=== PATIENT | female | born 1950 | race Caucasian/White ===

== ENCOUNTER 2020-05-27 11:48 | Outpatient (CLI) | payer MEDICARE, SELFPAY ==
--- NOTE | ~2020-05-27 | MM_ITS ---
EXAMINATION: MM screening [facility] BI w sharan HISTORY: Screening TECHNIQUE: Craniocaudal and mediolateral oblique 3-D tomosynthesis images were obtained and synthetic 2-D images were generated. CAD analysis was submitted and interpreted. COMPARISON: Comparison to multiple prior studies sequentially, with oldest reviewed study dated 02/2013. BREAST PARENCHYMAL COMPOSITION: There are scattered areas of fibroglandular density. FINDINGS: There is no evidence of suspicious mass, calcification, or architectural distortion to sugg est malignancy in either breast. There has been no suspicious interval change. IMPRESSION: 1. No mammographic evidence of malignancy. 2. Recommend routine screening mammography in one year. BI-RADS Category 1: Negative Reviewed, dictated and finalized at location A.
== END 2020-05-27 11:49 | disposition home or self-care (01) ==
PROVIDERS: PCP Family Medicine; Visit Provider Physician Assistant
DX: Z12.31 Encounter for screening mammogram for malignant neoplasm of breast (principal)
CPT/HCPCS: 77063; 77067

== ENCOUNTER 2021-07-26 09:31 | Outpatient (CLI) | payer MEDICARE, SELFPAY ==
--- NOTE | ~2021-07-26 | MM_ITS ---
EXAMINATION: MM screening [facility] BI w sharan HISTORY: Screening TECHNIQUE: Craniocaudal and mediolateral oblique 3-D tomosynthesis images were obtained and synthetic 2-D images were generated. CAD analysis was submitted and interpreted. COMPARISON: Comparison to multiple prior studies sequentially, with oldest reviewed study dated 02/2013. BREAST PARENCHYMAL COMPOSITION: There are scattered areas of fibroglandular density. FINDINGS: There is no evidence of suspicious mass, calcification, or architectural distortion to sugg est malignancy in either breast. There has been no suspicious interval change. IMPRESSION: 1. No mammographic evidence of malignancy. 2. Recommend routine screening mammography in one year. BI-RADS Category 1: Negative Reviewed, dictated and finalized at location A. 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
--- NOTE | ~2021-07-26 | DEXA_ITS ---
Bone Density Report Name: Renée Knapp Age: 70 Sex: Female Ethnicity: White Date of : 1950 Indication: osteopenia; height loss; hysterectomy; postmenopausal Referring Provider: Norris Moser Study: Bone densitometry was performed. Exam Date: July 26, 2021 Accession number: [id number] Bone Density: Region BMD T-score Z-score Classification AP Spine (L1-L4) 0.899 -1.3 0.9 Osteopenia Femoral Neck (Left) 0.603 -2.2 -0.3 Osteopenia Total Hip (Left) 0.802 -1.1 0.4 Osteopenia Total Hip Bilateral Avg 0.788 -1.3 0.3 Osteopenia Femoral Neck (Right) 0.649 -1.8 0.1 Osteopenia Total Hip (Right) 0.772 -1.4 0.2 Osteopenia World Health Organization criteria for BMD impression classify patients as: Normal (T-score at or above -1.0), Osteopenia (T-score between -1.0 and -2.5), or Osteoporosis (T-score at or below -2.5). 10-year Fracture Risk(1): Major Osteoporotic Fracture 12% Hip Fracture 2.5% Reported Risk Factors: [place] (), Neck BMD=0.603, BMI=35.8 (1) FRAX(R) Version 3.08. Fracture probability calculated for an untreated patient. Fracture probability may be lower if the patient has received treatment. Previous Exams: Region Exam Age BMD T-score BMD Change BMD Change Date g/cm2 vs Baseline vs Previous AP Spine(L1-L4) 07/26/2021 70 0.899 -1.3 -0.038(-4.0%)# -0.009(-1.0%) 12/19/2018 68 0.908 -1.3 -0.029(-3.1%)# 0.020(2.2%) 12/15/2016 66 0.888 -1.4 -0.048(-5.2%)# 0.006(0.6%) 10/24/2014 63 0.882 -1.5 -0.054(-5.8%)# -0.043(-4.6%)# 09/27/2012 61 0.925 -1.1 -0.011(-1.2%)# -0.011(-1.2%)# 01/24/2008 57 0.936 -1.0 Total Hip(Left) 07/26/2021 70 0.802 -1.1 -0.036(-4.3%)# 0.024(3.1%) 12/19/2018 68 0.778 -1.3 -0.060(-7.2%)# 0.006(0.8%) 12/15/2016 66 0.772 -1.4 -0.066(-7.9%)# -0.008(-1.0%) 10/24/2014 63 0.779 -1.3 -0.058(-6.9%)# -0.104(-11.8%) 09/27/2012 61 0.884 -0.5 0.046(5.5%)# 0.046(5.5%)# 01/24/2008 57 0.838 -0.9 Total Hip(Right) 07/26/2021 70 0.772 -1.4 -0.105(-12.0%) -0.030(-3.7%)* 12/19/2018 68 0.802 -1.2 -0.075(-8.5%)# 0.020(2.6%) 12/15/2016 66 0.781 -1.3 -0.095(-10.9%) -0.032(-3.9%)* 10/24/2014 63 0.813 -1.1 -0.064(-7.3%)# -0.075(-8.4%)# 09/27/2012 61 0.887 -0.4 0.011(1.3%)# 0.011(1.3%)# 01/24/2008 57 0.876 -0.5 *Denotes significance at 95% confidence level, LSC for AP Spine = 0.022 g/cm2, LSC for Total Hip = 0.027 g/cm2 Clinical Information Provided by Patient:
== END 2021-07-26 09:32 | disposition home or self-care (01) ==
PROVIDERS: PCP Family Medicine; Visit Provider Physician Assistant
DX: Z12.31 Encounter for screening mammogram for malignant neoplasm of breast (principal); M81.0 Age-related osteoporosis without current pathological fracture; M85.88 Other specified disorders of bone density and structure, other site; M85.852 Other specified disorders of bone density and structure, left thigh; M85.851 Other specified disorders of bone density and structure, right thigh
CPT/HCPCS: 77063; 77067; 77080

== ENCOUNTER 2022-04-07 10:09 | Outpatient (CLI) | payer MEDICARE, SELFPAY ==
[2022-04-07 19:09] LABS: Prothrombin Time 30.5 Seconds (11.1-14.7)
== END 2022-04-07 10:10 | disposition home or self-care (01) ==
LOC: ANHGOSHLAB 10:14
PROVIDERS: PCP Family Medicine; Visit Provider Family Medicine
DX: I82.1 Thrombophlebitis migrans (principal)
CPT/HCPCS: 36415; 85610

== ENCOUNTER 2022-05-12 09:54 | Outpatient (RCR) | payer MEDICARE, SELFPAY ==
[2022-05-12 18:28] LABS: INR 2.6; Prothrombin Time 27.1 Seconds (11.1-14.7)
== END 2022-08-10 23:59 | disposition home or self-care (01) ==
LOC: ANHGOSHLAB 09:54
PROVIDERS: PCP Family Medicine; Visit Provider Family Medicine
DX: Z51.81 Encounter for therapeutic drug level monitoring (principal); Z79.01 Long term (current) use of anticoagulants
CPT/HCPCS: 36415; 85610

== ENCOUNTER 2022-06-13 11:19 | Outpatient (RCR) | payer MEDICARE, SELFPAY ==
[2022-06-13 18:43] LABS: INR 2.9; Prothrombin Time 29.4 Seconds (11.1-14.7)
== END 2022-09-11 23:59 | disposition home or self-care (01) ==
LOC: ANHGOSHLAB 11:19
PROVIDERS: PCP Family Medicine; Visit Provider Family Medicine
DX: I82.1 Thrombophlebitis migrans (principal)
CPT/HCPCS: 36415; 85610

== ENCOUNTER 2022-07-13 09:01 | Outpatient (CLI) | payer MEDICARE, SELFPAY ==
[2022-07-13 12:56] LABS: Kit Draw Collected
== END 2022-07-13 09:02 | disposition home or self-care (01) ==
LOC: ANHGOSHLAB 09:03
PROVIDERS: PCP Family Medicine; Visit Provider Family Medicine
DX: E78.5 Hyperlipidemia, unspecified (principal)
CPT/HCPCS: 36415

== ENCOUNTER → 2022-12-30 10:15 | Outpatient (CLI) | payer MEDICARE, SELFPAY ==
--- NOTE | ~2022-12-30 | MM_ITS ---
EXAMINATION: MM screening [facility] BI w sharan HISTORY: Screening mammogram TECHNIQUE: Craniocaudal and mediolateral oblique 3-D tomosynthesis images were obtained and synthetic 2-D images were generated. CAD analysis was submitted and interpreted. COMPARISON: 07/26/2021, 05/27/2020, 12/19/2018 BREAST PARENCHYMAL COMPOSITION: There are scattered areas of fibroglandular density. FINDINGS: No suspicious mass, calcification, or architectural distortion are identified in either maddi ast to suggest malignancy. There has been no suspicious interval change. IMPRESSION: 1. No mammographic evidence of malignancy. 2. Recommend routine screening mammography in one year. BI-RADS Category 1: Negative Reviewed, dictated and finalized at location A.
== END ==
PROVIDERS: PCP Family Medicine; Visit Provider Family Medicine
DX: Z12.31 Encounter for screening mammogram for malignant neoplasm of breast (principal)
CPT/HCPCS: 77063; 77067

== ENCOUNTER 2023-01-21 18:01 | Emergency (ER) | payer MEDICARE, SELFPAY ==
[2023-01-21 18:11] VITALS: BP 157/80; PULSE 73; RESP 16; TEMP 37.4; O2SAT 98
--- NOTE | 2023-01-21 18:41 | ED.SKABFB ---
HPI - Skin/Abscess/Foreign Bdy General Chief complaint: Skin/Abscess/Foreign Body Stated complaint: TICK BITE Time Seen by Provider: 01/21/23 18:31 Source: patient and RN notes reviewed Mode of arrival: ambulatory Limitations: no limitations History of Present Illness HPI narrative: Patient presents today complaining of a tick bite to her abdomen. She was bit 1 week ago and it was removed promptly. States the redness around the tick bite appeared 3-5 days ago and has been progressively getting worse. Denies fever, headache, abdominal pain, sweats or chills. She has been using hydrogen peroxide and hydrocortisone ointment. Related Data Home Medications Medication Instructions Recorded Confirmed cetirizine 5 mg-pseudoephedrine ER 1 tablet PO Q12H 06/04/20 01/21/23 120 mg tablet,extended release,12hr (Zyrtec-D) aspirin 81 mg tablet,delayed 81 mg PO DAILY 08/25/22 01/21/23 release zinc sulfate 50 mg zinc (220 mg) 50 mg PO DAILY 08/25/22 01/21/23 capsule Allergies Allergy/AdvReac Type Severity Reaction Status Date / Time codeine Allergy Unknown Nausea Verified 01/21/23 18:12 Review of Systems Review of Systems: CONSTITUTIONAL: Denies body aches, fever, chills, or sweats. EYES: Denies visual changes, redness, or discharge. ENT: Denies rhinorrhea, congestion, sore throat, or otalgia. CARDIOVASCULAR: Denies chest pain, palpitations, or edema. RESPIRATORY: Denies cough or dyspnea. GASTROINTESTINAL: Denies abdominal pain, nausea, vomiting, or diarrhea. GENITOURINARY: Denies dysuria or hematuria. SKIN: + tick bite MUSCULOSKELETAL: Denies back pain, joint pain, or myalgia. NEUROLOGIC: Denies headache, numbness, tingling, or weakness. PSYCH: Denies depression or anxiety. 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) H/O colonoscopy 2015 H/O knee surgery 2014 H/O tubal ligation 1985 History of carpal tunnel release 2010 History of hernia repair 11-18-2010 Hx of cholecystectomy 2004 Status post embolization of uterine artery 2004 Family History Family History (Reviewed 01/21/23 @ 18:42 by Diana Padilla, [facility], ) Mother Family history of thyroid disease Hypertension Family history of arthritis Family history of chronic obstructive pulmonary disease, Onset Age: 87 Family history of cardiovascular disease Family history of osteoarthritis, Onset Age: 87 Family history of coronary artery disease Sibling Family history of thyroid disease Hypertension Family history of arthritis Family history of mental disorder Patient's sister is , Onset Age: 60 Family history of chronic obstructive pulmonary disease, Onset Age: 64 Carcinoma of colon Colon polyp, Onset Age: 64 Depression Father Patient's father is , Onset Age: 43 Hypertension Family history of elevated blood lipids Family history of malignant neoplasm of brain Grandparent Diabetes mellitus Cerebrovascular accident Social History Social History (Reviewed 01/21/23 @ 18:42 by Diana Padilla, [facility], ) Smoking status: Never smoker Alcohol intake: current Lack of Transportation: No Lack of Food: Never True Current Housing: I Have Housing Concerned About Future Housing: No Difficulty Paying Gas/Electric Bills: No Difficulty Paying for Meds: No Currently Unemployed: No Education: High School Diploma/GED Difficulty w/ Childcare or Family Care: No Comments At time of signature, I have reviewed and agree with nursing past medical, surgical, social and family history unless otherwise noted. Please see nursing chart for further information. There is no r
== END 2023-01-21 18:54 | disposition home or self-care (01) ==
PROVIDERS: Emergency Provider Nurse Practitioner; PCP Family Medicine
DX: S30.861A Insect bite (nonvenomous) of abdominal wall, initial encounter (principal); W57.XXXA Bitten or stung by nonvenomous insect and other nonvenomous arthropods, initial encounter; Z79.82 Long term (current) use of aspirin; E07.9 Disorder of thyroid, unspecified
CPT/HCPCS: 99213; G0463

== ENCOUNTER 2023-02-20 09:15 | Outpatient (CLI) | payer MEDICARE, SELFPAY ==
[2023-02-20 20:43] LABS: Alanine Aminotransferase 33 U/L (6-35); Albumin Level 4.3 g/dL (3.5-5.1); Alkaline Phosphatase 92 U/L (38-126); Anion Gap 8 mmol/L (8-16); Aspartate Amino Transferase 31 U/L (14-36); Bilirubin,Total 1.1 mg/dL (0.2-1.3); Blood Urea Nitrogen 13 mg/dL (7-17); Calcium 10.3 mg/dL (8.4-10.2); Carbon Dioxide 29 mmol/L (22-30); Chloride 102 mmol/L (98-107); Cholesterol 142 mg/dL (0-200); Estimated Glomerular Filt Rate > 60; Glucose 77 mg/dL (65-110); HDL Direct 60 mg/dL; Potassium 4.3 mmol/L (3.4-5.0); Sodium 139 mmol/L (137-145); Triglycerides 81 mg/dL (<150)
[2023-02-20 20:53] LABS: LDL Cholesterol Direct 65 mg/dL
[2023-02-20 21:02] LABS: Hemoglobin A1C 5.4 % (<5.7)
== END 2023-02-20 09:16 | disposition home or self-care (01) ==
LOC: ANHGOSHLAB 09:17
PROVIDERS: PCP Family Medicine; Visit Provider Family Medicine
DX: E78.5 Hyperlipidemia, unspecified (principal); Z79.899 Other long term (current) drug therapy
CPT/HCPCS: 36415; 80053; 80061; 83036; 84443

== ENCOUNTER 2024-04-02 07:58 | Outpatient (CLI) | payer MEDICARE, SELFPAY ==
[2024-04-02 19:18] LABS: Basophils Absolute Auto 0.1 K/mm3 (0.0-0.1); Basophils Percent Auto 0.8 % (0.2-1.2); Eosinophils Absolute Auto 0.5 K/mm3 (0-0.3); Eosinophils Percent Auto 8.1 % (0-4.4); Hematocrit 43.9 % (37.0-47.0); Hemoglobin 13.6 g/dL (12.0-15.0); Lymphocytes Absolute Auto 2.39 K/mm3 (0.9-3.2); Lymphocytes Percent Auto 38.5 % (18.3-44.2); Mean Corpuscular Hemoglobin 28.6 pg (26-34); Mean Corpuscular Volume 92.4 fl (80-100); Mean Platelet Volume 10.3 fl (7.4-10.4); Monocytes Absolute Auto 0.4 K/mm3 (0.1-0.6); Monocytes Percent Auto 6.6 % (2.6-8.5); Neutrophils Absolute Auto 2.9 K/mm3 (1.3-6.7); Platelet Count Result 343 k/mm3 (150-375); Red Blood Count 4.75 M/mm3 (4.2-5.4); Red Cell Distribution Width 13.2 % (11.5-14.5); White Blood Count 6.2 K/mm3 (4.5-10.0)
[2024-04-02 19:34] LABS: Vitamin D 25 Hydroxy 58.4 ng/mL
[2024-04-02 22:16] LABS: Alanine Aminotransferase 28 U/L (6-35); Albumin Level 4.1 g/dL (3.5-5.1); Alkaline Phosphatase 88 U/L (38-126); Anion Gap 8 mmol/L (4-12); Aspartate Amino Transferase 30 U/L (14-36); Bilirubin,Total 1.3 mg/dL (0.2-1.3); Blood Urea Nitrogen 16 mg/dL (7-17); Calcium 10.1 mg/dL (8.4-10.2); Carbon Dioxide 28 mmol/L (22-30); Chloride 104 mmol/L (98-107); Cholesterol 136 mg/dL (0-200); Estimated Glomerular Filt Rate > 60; Glucose 74 mg/dL (65-110); HDL Direct 54 mg/dL; Sodium 140 mmol/L (137-145); Triglycerides 76 mg/dL (<150)
[2024-04-02 22:27] LABS: LDL Cholesterol Direct 61 mg/dL
[2024-04-02 22:46] LABS: Thyroid Stimulating Hormone 0.299 uIU/mL (0.465-4.680)
== END 2024-04-02 07:59 | disposition home or self-care (01) ==
LOC: ANHGOSHLAB 07:59
PROVIDERS: Visit Provider Nurse Practitioner Family
DX: E78.5 Hyperlipidemia, unspecified (principal); E03.9 Hypothyroidism, unspecified; I10 Essential (primary) hypertension; E55.9 Vitamin D deficiency, unspecified; E88.810 Metabolic syndrome; I87.8 Other specified disorders of veins
CPT/HCPCS: 36415; 80053; 80061; 82306; 84443; 85025

== ENCOUNTER 2024-07-03 10:37 | Outpatient (CLI) | payer MEDICARE, SELFPAY ==
--- NOTE | ~2024-07-03 | MM_ITS ---
EXAMINATION: MM screening [facility] BI w sharan HISTORY: Screening mammogram TECHNIQUE: Craniocaudal and mediolateral oblique 3-D tomosynthesis images were obtained and synthetic 2-D images were generated. CAD analysis was submitted and interpreted. COMPARISON: 12/30/2022, 07/26/2021, 05/27/2020 BREAST PARENCHYMAL COMPOSITION:Not Dense. There are scattered areas of fibroglandular density. FINDINGS: No suspicious mass, calcification, or architectural distortion are identified in either maddi ast to suggest malignancy. There has been no suspicious interval change. IMPRESSION: No mammographic evidence of malignancy. Recommend routine screening mammography in one year. BI-RADS Category 1: Negative Reviewed, dictated and finalized at location . 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
== END 2024-07-03 10:38 | disposition home or self-care (01) ==
LOC: MICIMG 10:38
PROVIDERS: PCP Nurse Practitioner Family; Visit Provider Nurse Practitioner Family
DX: Z12.31 Encounter for screening mammogram for malignant neoplasm of breast (principal)
CPT/HCPCS: 77063; 77067

== ENCOUNTER 2024-10-09 14:51 | Outpatient (CLI) | payer MEDICARE, SELFPAY ==
--- OUTSIDE RECORDS SUMMARY | 2024-10-09 14:55 | XMS_ITS | Referral Summary ---
Author Organization [facility] Address [address] [address] Care Team Providers Care Transplant Case Manager Name Role Phone Johnson Weinstein MD Primary Care Provider [phone] Johnson Weinstein MD Unavailable [phone] Source Comments [facility],non-owned Affiliates and Associated Physician Practices is amultiple site organization consisting of ambulatory clinics and hospital sitesin [place], [place], [place] and [place]. This disclosure is being madepursuant to the Care Everywhere program and may not contain all information available regarding this patient. Last updated 18.[facility] [employer] Allergies No known active allergies Medications * Be aware that medications may not be up to date on this document. Alwaysverify current medications with the patient. Medication Sig Dispensed Refills Start Date End Date Status warfarin (COUMADIN) 1 MG tablet Take 1 mg by mouth Active warfarin (COUMADIN) 6 MG tablet Take 6 mg by mouth Active Levothyroxine Sodium (SYNTHROID PO) Active LISINOPRIL PO Active Social History Tobacco Use Types Packs/Day Years Used Date Smoking Tobacco: Never Sex and Gender Information Value Date Recorded Sex Assigned at Not on file Gender Identity Not on file Sexual Orientation Not on file Last Filed Vital Signs Vital Sign Reading Time Taken Comments Blood Pressure 120/72 01/21/2017 11:29 AM CDT Pulse 78 01/21/2017 11:29 AM CDT Temperature 37.1 C (98.7 F) 01/21/2017 11:29 AM CDT Respiratory Rate 16 01/21/2017 11:29 AM CDT Oxygen Saturation 99% 01/21/2017 11:29 AM CDT Inhaled Oxygen Concentration - - Weight 81.6 kg (180 lb) 01/21/2017 11:29 AM CDT Height 162.6 cm (5' 4 ) 01/21/2017 11:29 AM CDT Body Mass Index 30.9 01/21/2017 11:29 AM CDT Plan of Treatment Not on file Care Teams Transplant Case Manager Relationship Specialty Start Date End Date Johnson Weinstein MD [address] [place] [id number] PCP - General 04/11/18 Johnson Weinstein MD [address] [place] [id number] Family Medicine 04/11/18
--- OUTSIDE RECORDS SUMMARY | 2024-10-09 14:55 | XMS_ITS | Clinical Summary ---
Author Organization [facility] ([facility]3] at [facility] Address [address] [place] [address] Care Team Providers Care Sap Abap Developer Name Role Phone Johnson Weinstein MD Primary Care Provider [phone] Allergies Active Allergy Reactions Criticality Noted Date Comments Codeine Unknown 09/20/2021 Medications cetirizine (ZyrTEC) 10 mg tablet Take 1 tablet (10 mg total) by mouth daily Active lisinopriL (PRINIVIL,ZESTR IL) 10 mg tablet Take 1 tablet (10 mg total) by mouth daily Active warfarin (COUMADIN) 1 mg tablet Take 1 mg by mouth Active warfarin (COUMADIN) 6 mg tablet Take 6 mg by mouth Active fluticasone propionate (FLONASE) 50 mcg/actuation nasal spray Administer 1 spray into each nostril daily Active atorvastatin (LIPITOR) 20 mg tablet Take 1 tablet (20 mg total) by mouth daily Active levothyroxine (SYNTHROID) 125 mcg tablet Take 1 tablet (125 mcg total) 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 Patient does have a history of an iliofemoral DVT and left iliac vein stenting over 20 years ago. No open ulcerations are noted to bilateral lower extremities. Mild lipodermatosclerosis to bilateral anterior calves. Patient has small varicosities to the left medial calf. Venous duplex performed on 02/06/2023 reveals a patent common iliac vein stent. Plan: Follow-up in 6 months with venous duplex. History of DVT (deep vein thrombosis) 12/28/2021 Assessment & Plan (03/14/2024 10:56 AM CDT): Status post thrombectomy and stenting of her iliac vein over 20 years ago. Doing well overall with some mild post thrombotic syndrome. Continue ASA and follow up in 1 year. Assessment & Plan (03/08/2023 4:33 PM CDT): Patient with a history of common iliac stenting 20 years ago due to iliofemoral DVT. She presents today for routine follow-up, having undergone noninvasive testing. She does have bilateral lower extremity edema and asymptomatic varicosities to her bilateral lower extremities. Will hold on any surgical procedure intervention for now. Patient to obtain compression pump, continue utilizing compression socks. Follow-up in 1 year with venous duplex for left iliac vein stent surveillance Assessment & Plan (12/28/2021 8:17 AM CDT): Assessment/plan: I had a long discussion with the patient regarding her anticoagulation, she had 1 episode of DVT over 10 years ago, she is currently on Coumadin. We discussed the recommendation of stopping her anticoagulation as she has only had 1 episode in her life time and does not have an extensive family history of DVT/PE. We discussed if she were to have another episode of DVT then I would recommend lifelong anticoagulation. Mixed hyperlipidemia 10/06/2021 Assessment & Plan (03/14/2024 10:56 AM CDT): Stable continue atorvastatin 20 mg. Assessment & Plan (02/10/2023 2:11 PM CDT): Impression: Chronic stable hyperlipidemia. Plan: Continue Lipitor 20 mg. Assessment & Plan (07/13/2022 10:51 AM HISTORICAL INTERPRETER): Lipitor Assessment & Plan (06/29/2022 10:25 AM HISTORICAL INTERPRETER): Lipitor Assessment & Plan (12/28/2021 8:17 AM CDT): Lipitor Assessment & Plan (10/06/2021 9:35 AM HISTORICAL INTERPRETER): Assessment/plan: Lipitor Primary hypertension 10/06/2021 Assessment & Plan (03/14/2024 10:56 AM CDT): Stable continue lisinopril 10 mg. Assessment & Plan (02/10/2023 2:11 PM CDT): Impression: Chronic stable hypertension. Plan: Continue lisinopril 10 mg. Assessment & Plan (07/13/2022 10:51 AM HISTORICAL INTERPRETER): Lisinopril Assessment & Plan (06/29/2022 10:24 AM HISTORICAL INTERPRETER): Lisinopril Assessment & Plan (12/28/2021 8:18 AM CDT): Lisinopril Assessment & Plan (10/06/2021 9:35 AM HISTORICAL INTERPRETER): Assessment/plan: Lisinopril Hereditary edema of legs 10/06/2021 Assessment & Plan (02/15/2023 11:45 AM CDT): Impression: Patient has significant chronic edema, hyperpigmentation, and swelling from the toes to the groin, has been utilizing compression therapy 20-30 mm of mercury for greater than 4 weeks, leg elevation, and exercise without improvement of symptoms. Plan: Recommend patient to continue utilizing compression therapy and leg elevation for edema control. -recommend evaluation by bio tab for further evaluation for compression pumps. -patient to follow-up in 4 weeks for re-evaluation with venous reflux studies. Assessment & Plan (07/13/2022 10:51 AM HISTORICAL INTERPRETER): Left iliac vein stent is patent. I have recommended continuation of her compression stockings. We had a long discussion regarding her Coumadin, as she has had 1 episode of provoked DVT due to hormone replacement therapy, has not had repeat DVT and has no extensive family history of DVT/PE I have recommended discontinuing her Coumadin. We discussed if she has another episode of DVT I would recommend lifelong anticoagulation. Will follow-up in 6 months with repeat duplex to monitor her venous stent. Recommend 81 mg ASA. Assessment & Plan (06/29/2022 10:24 AM HISTORICAL INTERPRETER): History of left iliofemoral DVT with thrombectomy and stenting of her iliac vein, still on Coumadin. We discussed at length that given she is only had 1 episode of iliofemoral DVT 20 years ago and no extensive family history she can likely safely come off her anticoagulation, no one has denies surveillance on her stents since her procedure so I have recommended continuing her Coumadin for now, left lower extremity and iliac duplex ordered for further evaluation. Assessment & Plan (12/28/2021 8:22 AM CDT): Assessment/plan: Bilateral lower extremity swelling with lipodermatosclerosis, scattered areas of varicosities. She does have reflux and bilateral saphenous and small saphenous veins. I discussed the importance of continue compression therapy, she will follow-up with her PCP to discuss discontinuing her Coumadin. Pending this she will see me back in the office and will discuss saphenous ablation. Assessment & Plan (10/06/2021 9:35 AM HISTORICAL INTERPRETER): Assessment/plan: Bilateral lower extremity edema with lipodermatosclerosis. I discussed the importance of compression therapy. I have written a prescription for compression stockings. She will follow-up in 3 months for further evaluation reflux psychotherapist counselor study. Surgical History Surgery Date Site/Laterality Comments COLONOSCOPY KNEE SURGERY TUBAL LIGATION CARPAL TUNNEL RELEASE CHOLECYSTECTOMY Medical History Medical History Date Comments Migraines Dyslipidemia Hyperlipidemia Diabetes mellitus (HCC) Hypothyroidism Family History Medical History Relation Name Comments Arthritis Mother COPD Mother Coronary artery disease Mother Hypertension Mother Thyroid disease Mother Relation Name Status Comments Father Mother Alive Social History Tobacco Use Types Packs/Day Years Used Date Smoking Tobacco: Never Personal Safety Answer Date Recorded Getting School Help Needed Not on file 10/15 Comments Unknown Sex and Gender Information Value Date Recorded Sex Assigned at Not on file Legal Sex Female 11:12 PM HISTORICAL INTERPRETER Gender Identity Not on file Sexual Orientation Not on file Obstetrics History Last Filed Vital Signs Vital Sign Reading Time Taken Comments Blood Pressure 149/89 03/11/2024 1:50 PM CDT Pulse 67 03/11/2024 1:50 PM CDT Temperature - - Respiratory Rate - - Oxygen Saturation - - Inhaled Oxygen Concentration - - Weight 90.3 kg (199 lb) 03/11/2024 1:50 PM CDT Height 162.6 cm (5' 4 ) 03/11/2024 1:50 PM CDT Body Mass Index 34.16 03/11/2024 1:50 PM CDT Plan of Treatment Health Maintenance Due Date Last Done Comments Breast Cancer Screening-Mammogram 1950 Colon Cancer Screening-Colonoscopy 1950 Depression Screening 1950 Fall Risk Assessment 1950 Hepatitis C Screening 1950 Osteoporosis Screening-Bone Density Scan 1950 Hepatitis B Screening 11/10/1967 Zoster Vaccine (1 of 2) 11/10/1999 Well Visit 65+ 2014 DTaP/Tdap/Td Vaccine (1 - Tdap) 05/30/2018 8 Pneumococcal vaccine 65+ (2 of 2 - PCV) 05/29/2019 05/29/2018 Influenza Vaccine (#1) 2024 0, 06/04/2019, 05/24/2018 Insurance [employer] CHOICE MEDICARE PPO Care Teams Sap Abap Developer Relationship Specialty Start Date End Date Johnson Weinstein MD PCP - General Family Medicine 07/09/21
--- OUTSIDE RECORDS SUMMARY | 2024-10-09 14:55 | XMS_ITS | Clinical Summary ---
Author Organization [facility] Address [address] [place] [address] Care Team Providers Care Veterinarian Poultry Name Role Phone Johnson Weinstein MD Primary Care Provider [phone] Johnson Weinstien MD Unavailable [phone] Source Comments [facility],non-owned Affiliates and Associated Physician Practices is amultiple site organization consisting of ambulatory clinics and hospital sitesin [place], [place], [place] and [place]. This disclosure is being madepursuant to the Care Everywhere program and may not contain all information available regarding this patient. Last updated 18.[facility] [employer] Allergies No known active allergies Medications * [...] 01/21/2017 11:29 AM CDT Plan of Treatment Health Maintenance Due Date Last Done Comments BONE DENSITY TESTING 1950 COLOGUARD (AGES 45-75) - COL ON CA SCREENING 1950 COLON MONITORING 1950 COLONOSCOPY - COLON CA SCREENING 1949 CT COLONOGRAPHY - COLON CA SCREENING 1950 Colorectal Cancer Screening 1950 FIT - COLON CA SCREENING 1950 FLEX SIG - COLON CA SCREENING 1950 LIPID TESTING 1950 MAMMOGRAM 1950 MEDICARE AWV 12 MONTHS 1950 HEPATITIS C SCREENING 11/05/1967 DTAP/TDAP/TD VACCINES (1 - Tdap) 1968 PNEUMOCOCCAL VACCINE 50+ (1 of 1 - PCV) 11/10/1999 ZOSTER VACCINE (1 of 2) 11/10/1999 COVID-19 VACCINE (1 - 2023-2 5 season) 2024 INFLUENZA VACCINE (#1) 2024 DEPRESSION SCREENING 08/21/2024 Respiratory Syncytial Virus (RSV) Vaccine Pt: or over 60 yrs (1 - 1-dose 75+ series) 2024 HEPATITIS B VACCINE Aged Out No longe r eligible based on patient's age to complete this topic HIB VACCINE Aged Out No longer eligi ble based on patient's age to complete this topic HPV VACCINE Aged Out No longer eligi ble based on patient's age to complete this topic MENINGOCOCCAL (Group B) VACCINE Aged Out No longer eligible based on patient's age to complete this topic MENINGOCOCCAL VACCINE Aged Out No charles jenn eligible based on patient's age to complete this topic Care Teams Veterinarian Poultry Relationship Specialty Start Date End Date Johnson Weinstein MD [facility] [place] [id number] PCP - General 04/11/18 Johnson Weinstein MD [facility] [place] [id number] Family Medicine 04/11/18
--- OUTSIDE RECORDS SUMMARY | 2024-10-09 14:55 | XMS_ITS | Referral Summary ---
Author Organization [facility] Address [address] [place] [address] Care Team Providers Care Assembly Press Operator Name Role Phone Johnson Weinstein MD Primary Care Provider [phone] Allergies Active Allergy Reactions Criticality Noted Date [...] 1 tablet (125 mcg total) by mouth quality intern before breakfast Active metFORMIN (GLUCOPHAGE) 500 mg [...] mg. Assessment & Plan (07/13/2022 10:51 AM WALLPAPER REMOVER STEAM): Lipitor Assessment & Plan (06/29/2022 10:25 AM WALLPAPER REMOVER STEAM): Lipitor Assessment & Plan (12/28/2021 8:17 AM CDT): Lipitor Assessment & Plan (10/06/2021 9:35 AM WALLPAPER REMOVER STEAM): Assessment/plan: Lipitor Primary hypertension 10/06/2021 Assessment & Plan (03/14/2024 10:56 AM CDT): Stable continue lisinopril 10 mg. Assessment & Plan (02/10/2023 2:11 PM CDT): Impression: Chronic stable hypertension. Plan: Continue lisinopril 10 mg. Assessment & Plan (07/13/2022 10:51 AM WALLPAPER REMOVER STEAM): Lisinopril Assessment & Plan (06/29/2022 10:24 AM WALLPAPER REMOVER STEAM): Lisinopril Assessment & Plan (12/28/2021 8:18 AM CDT): Lisinopril Assessment & Plan (10/06/2021 9:35 AM WALLPAPER REMOVER STEAM): Assessment/plan: Lisinopril Hereditary edema of legs 10/06/2021 [...] studies. Assessment & Plan (07/13/2022 10:51 AM WALLPAPER REMOVER STEAM): Left iliac vein stent is patent. I [...] ASA. Assessment & Plan (06/29/2022 10:24 AM WALLPAPER REMOVER STEAM): History of left iliofemoral DVT with thrombectomy [...] ablation. Assessment & Plan (10/06/2021 9:35 AM WALLPAPER REMOVER STEAM): Assessment/plan: Bilateral lower extremity edema with lipodermatosclerosis. I discussed the importance of compression therapy. I have written a prescription for compression stockings. 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 Social History Tobacco Use Types Packs/Day Years Used Date Smoking Tobacco: Never Personal Safety Answer Date Recorded Getting School Help Needed Not on file 10/15 Comments Unknown Sex and Gender Information Value Date Recorded Sex Assigned at Not on file Legal Sex Female 11:12 PM WALLPAPER REMOVER STEAM Gender Identity Not on file Sexual Orientation [...] 03/11/2024 1:50 PM CDT Plan of Treatment Not on file Insurance [employer] CHOICE MEDICARE PPO [id number] [place] [id number] Care Teams Assembly Press Operator Relationship Specialty Start Date End Date Johnson Weinstein MD PCP - General Family Medicine 07/09/21
== END 2024-10-09 14:52 | disposition home or self-care (01) ==
LOC: ANHGOSHLAB 14:52
PROVIDERS: PCP Nurse Practitioner Family; Visit Provider Nurse Practitioner Family
DX: E03.9 Hypothyroidism, unspecified (principal); I10 Essential (primary) hypertension
CPT/HCPCS: 36415; 84443

== ENCOUNTER 2025-04-07 09:42 | Outpatient (CLI) | payer MEDICARE, SELFPAY ==
--- OUTSIDE RECORDS SUMMARY | 2025-04-07 10:25 | XMS_ITS | Clinical Summary ---
Author Organization [facility] Address [address] [place] [address] Care Team Providers Care Bus And Sys Integration Senior Manager Name Role Phone Johnson Weinstein MD Primary Care Provider [phone] Johnson Weinstein MD Unavailable [phone] [facility],non-owned Affiliates and Associated Physician Practices is amultiple site organization consisting of ambulatory clinics and hospital sitesin [place], [place] and [place]. This disclosure is being madepursuant to the Care Everywhere program and may not contain all information available regarding this patient. Last updated 18.[facility] [employer] Allergies No known active allergies Medications * Be aware that medications may not be up to date on this document. Alwaysverify current medications with the patient. 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 Gender Identity Not on file Sexual Orientation [...] 11:29 AM CDT Height 162.6 cm (5' 4) 01/21/2017 11:29 AM CDT Body Mass Index [...] SCREENING 1950 LIPID TESTING 1950 MAMMOGRAM 1950 HEPATITIS C SCREENING 11/05/1967 DTAP/TDAP/TD VACCINES (1 - Tdap) 1968 PNEUMOCOCCAL VACCINE 50+ (1 of 1 - PCV) 11/10/1999 ZOSTER VACCINE (1 of 2) 11/10/1999 COVID-19 VACCINE (1 - 2023-2 5 season) 2024 DEPRESSION SCREENING 08/21/2024 Respiratory Syncytial Virus (RSV) Vaccine Pt: or over 60 yrs (1 - 1-dose 75+ series) 2024 INFLUENZA VACCINE (#1) 2025 HEPATITIS B VACCINE Aged Out No longe r eligible based on patient's age to complete this topic HIB VACCINE Aged Out No longer eligi ble based on patient's age to complete this topic HPV VACCINE Aged Out No longer eligi ble based on patient's age to complete this topic MENINGOCOCCAL (Group B) VACC INE SHARED DECISION-MAKING Aged Out No longer eligibl e based on patient's age to complete this topic MENINGOCOCCAL GROUPS A/C/Y/W VACCINE Aged Out No longer eligible b ased on patient's age to complete this [place] [phone] MEDICARE MEDICARE [facility] Care Teams Bus And Sys Integration Senior Manager Relationship Specialty Start Date End Date Johnson Weinstein MD [address] [place] [phone] PCP - General 04/11/18 Johnson Weinstein MD [address] [place] [phone] Family Medicine 04/11/18
--- OUTSIDE RECORDS SUMMARY | 2025-04-07 10:25 | XMS_ITS | Clinical Summary ---
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 Follow up in 1 year with repeat noninvasives testing Assessment & Plan (03/14/2024 10:56 AM CDT): [...] anticoagulation. Mixed hyperlipidemia 10/06/2021 Assessment & Plan (03/19/2025 10:22 AM CDT): Stable continue Lipitor Assessment & Plan (03/14/2024 10:56 AM CDT): Stable continue atorvastatin 20 mg. Assessment & Plan (02/10/2023 2:11 PM CDT): Impression: Chronic stable hyperlipidemia. Plan: Continue Lipitor 20 mg. Assessment & Plan (07/13/2022 10:51 AM COORDINATOR MINING PRODUCTS): Lipitor Assessment & Plan (06/29/2022 10:25 AM COORDINATOR MINING PRODUCTS): Lipitor Assessment & Plan (12/28/2021 8:17 AM CDT): Lipitor Assessment & Plan (10/06/2021 9:35 AM COORDINATOR MINING PRODUCTS): Assessment/plan: Lipitor Primary hypertension 10/06/2021 Assessment & Plan (03/19/2025 10:22 AM CDT): Stable continue lisinopril Assessment & Plan (03/14/2024 10:56 AM CDT): Stable continue lisinopril 10 mg. Assessment & Plan (02/10/2023 2:11 PM CDT): Impression: Chronic stable hypertension. Plan: Continue lisinopril 10 mg. Assessment & Plan (07/13/2022 10:51 AM COORDINATOR MINING PRODUCTS): Lisinopril Assessment & Plan (06/29/2022 10:24 AM COORDINATOR MINING PRODUCTS): Lisinopril Assessment & Plan (12/28/2021 8:18 AM CDT): Lisinopril Assessment & Plan (10/06/2021 9:35 AM COORDINATOR MINING PRODUCTS): Assessment/plan: Lisinopril Hereditary edema of legs 10/06/2021 [...] studies. Assessment & Plan (07/13/2022 10:51 AM COORDINATOR MINING PRODUCTS): Left iliac vein stent is patent. I [...] ASA. Assessment & Plan (06/29/2022 10:24 AM COORDINATOR MINING PRODUCTS): History of left iliofemoral DVT with thrombectomy [...] ablation. Assessment & Plan (10/06/2021 9:35 AM COORDINATOR MINING PRODUCTS): Assessment/plan: Bilateral lower extremity edema with lipodermatosclerosis. I discussed the importance of compression therapy. I have written a prescription for compression stockings. 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) (Primary Dx); History of DVT (deep vein thrombosis) 03/12/2025 8:00 AM CDT Ancillary Procedure [facility] at [address] [place] [phone] 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96 03/19/2025 9:30 AM CDT Plan of Treatment Health Maintenance Due Date Last Done Comments Colon Cancer Screening-Colonoscopy 1950 Depression Screening 1950 Fall Risk Assessment 1950 Hepatitis C Screening 1950 Osteoporosis Screening-Bone Density Scan 1950 Hepatitis B Screening 11/10/1967 Zoster Vaccine (1 of 2) 11/10/1999 Well Visit 65+ 2014 DTaP/Tdap/Td Vaccine (1 - Tdap) 05/30/2018 8 Pneumococcal vaccine 65+ (2 of 2 - PCV) 05/29/2019 05/29/2018 Influenza Vaccine (#1) 2025 0, 06/04/2019, 05/24/2018 Procedures Procedure Name Priority Date/Time Associated Diagnosis Comments US VEIN DUPLEX LOWER EXTREMITY LEFT LIMITED Schedule Routine, Read Routine (OP Routine) 03/12/2025 8:27 AM CDT 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 [address] Lower Extremity Venous Report Patient Name: DIOMEDES JACKSON B : 1950 (74y 4m) Gender: F Study Date: 03/12/2025 07:56:37 AM Shirt Creaser: EKATERINA Location: [facility] Order Provider: RAZ WATKINS Quality: Adequate Ref Provider: RAZ WATKINS PROCEDURES: Vascular Report: A non-invasive vascular imaging study of the left lower extremity veins was performed using B-mode ultrasound, color flow, and spectral Doppler. INDICATIONS: S/P thromb/stent LCIV 20+ years ago. HISTORY: HTN. HLD. LLE DVT. DM. COMPARISONS: No change compared to prior study. The previous exam was completed on 03/11/24: patent stent, neg DVT. FINDINGS: Left: Negative for acute deep and superficial vein thrombosis in the left lower extremity. Chronic nonocclusive deep vein thrombosis in the left lower extremity. Deep veins involved include the left popliteal vein and gastrocnemius vein. Normal compressibility and color filling, spontaneous and phasic flow, and response to distal augmentation is demonstrated in the left common femoral vein, saphenofemoral junction, proximal femoral vein, mid femoral vein, distal femoral vein, profunda vein, posterior tibial veins, peroneal veins and soleal veins. For comparisons purposes, the right common femoral vein was interrogated. The common femoral vein Doppler flow was phasic, spontaneous and responded normally to distal augmentation. Left common iliac vein stent is patent: velocity proximal 31 cm/s, mid 30 cm/s, distal 24 cm/s. External iliac vein velocity proximal 34 cm/s, distal 23 cm/s. IVC distal is patent with velocity 36 cm/s. CONCLUSIONS: 1. Negative for acute deep and superficial vein thrombosis in the left lower extremity. Chronic nonocclusive deep vein thrombosis in the left lower extremity. Deep veins involved include the left popliteal vein and gastrocnemius vein. 2. Left common iliac vein stent is patent. ATTESTATION: I have reviewed and interpreted the pertinent images and measurements of this study. I attest to the conclusions in the final report that is provided above. Electronically Signed By: Raz Watkins MD 03/12/2025 3:06:19 PM CDT Procedure Note Raz Watkins MD - 03/12/2025 Vascular & Vein Surgery [address] [place] [id number] Lower Extremity Venous Report Patient Name: DIOMEDES JACKSON B : 1950 (74y 4m) Gender: F Study Date: 03/12/2025 07:56:37 AM Shirt Creaser: Location: [facility] Order Provider: RAZ WATKINS Quality: Adequate Ref Provider: RAZ WATKINS PROCEDURES: Vascular Report: A non-invasive vascular imaging study of the left lowerextremity veins was performed using B-mode ultrasound, color flow, and spectral Doppler. INDICATIONS: S/P thromb/stent LCIV 20+ years ago. HISTORY: HTN. HLD. LLE DVT. DM. COMPARISONS: No change compared to prior study. The previous exam was completed on03/11/24: patent stent, neg DVT. FINDINGS: Left: Negative for acute deep and superficial vein thrombosis in the leftlower extremity. Chronic nonocclusive deep vein thrombosis in the left lowerextremity. Deep veins involved include the left popliteal vein and gastrocnemius vein.Normal compressibility and color filling, spontaneous and phasic flow, andresponse to distal augmentation is demonstrated in the left common femoral vein,saphenofemoral junction, proximal femoral vein, mid femoral vein, distal femoral vein, profundavein, posterior tibial veins, peroneal veins and soleal veins. For comparisons purposes,the right common femoral vein was interrogated. The common femoral vein Doppler flow wasphasic, spontaneous and responded normally to distal augmentation. Left commoniliac vein stent is patent: velocity proximal 31 cm/s, mid 30 cm/s, distal 24 cm/s.External iliac vein velocity proximal 34 cm/s, distal 23 cm/s. IVC distal is patent withvelocity 36 cm/s. CONCLUSIONS: 1. Negative for acute deep and superficial vein thrombosis in the leftlower extremity. Chronic nonocclusive deep vein thrombosis in the left lower extremity.Deep veins involved include the left popliteal vein and gastrocnemius vein. 2. Left common iliac vein stent is patent. ATTESTATION: I have reviewed and interpreted the pertinent images and measurements ofthis study. I attest to the conclusions in the final report that is provided above. Electronically Signed By: Raz Watkins MD 03/12/2025 3:06:19 PM CDT Raz Watkins MD IM US PROCEDURES Final Result from Last 3 Months Insurance [employer] CHOICE MEDICARE PPO Care Teams Bandage Maker Relationship Specialty Start Date End Date Johnson Weinstein MD PCP - General Family Medicine 07/09/21
[2025-04-07 13:13] LABS: Hematocrit 46.0 % (37.0-47.0); Hemoglobin 14.4 g/dL (12.0-15.0); Immature Granulocyte Percent A 0.3 % (0-0.5); Lymphocytes Absolute Auto 2.32 K/mm3 (0.9-3.2); Mean Corpuscular HGB Conc 31.3 g/dl (32-36); Mean Corpuscular Hemoglobin 28.1 pg (26-34); Mean Corpuscular Volume 89.7 fl (80-100); Nucleated Red Blood Cells Absolute Auto 0.000 K/mm3 (0.0-0.012); Nucleated Red Blood Cells Perc 0.0 % (0.0-0.2); Platelet Count Result 369 k/mm3 (150-375); Red Blood Count 5.13 M/mm3 (4.2-5.4); White Blood Count 6.9 K/mm3 (4.5-10.0)
[2025-04-07 13:21] LABS: Alanine Aminotransferase 38 U/L (6-35); Albumin Level 4.4 g/dL (3.5-5.1); Alkaline Phosphatase 98 U/L (38-126); Anion Gap 6 mmol/L (4-12); Aspartate Amino Transferase 74 U/L (14-36); Bilirubin,Total 1.3 mg/dL (0.2-1.3); Blood Urea Nitrogen 12 mg/dL (7-17); Calcium 10.5 mg/dL (8.4-10.2); Carbon Dioxide 27 mmol/L (22-30); Chloride 105 mmol/L (98-107); Cholesterol 152 mg/dL (0-200); Estimated Glomerular Filt Rate > 60; Glucose 92 mg/dL (65-110); HDL Direct 61 mg/dL; Potassium 4.5 mmol/L (3.4-5.0); Sodium 138 mmol/L (137-145); Total Protein 7.4 g/dL (6.3-8.2); Triglycerides 72 mg/dL (<150)
[2025-04-07 13:49] LABS: Thyroid Stimulating Hormone Reflex 0.715 uIU/mL (0.465-4.68)
[2025-04-07 21:40] LABS: Hemoglobin A1C 5.5 % (<5.7)
== END 2025-04-07 09:43 | disposition home or self-care (01) ==
LOC: ANHGOSHLAB 09:42
PROVIDERS: PCP Family Medicine; Visit Provider Nurse Practitioner Family
DX: E78.5 Hyperlipidemia, unspecified (principal); I10 Essential (primary) hypertension; E03.9 Hypothyroidism, unspecified; R73.01 Impaired fasting glucose
CPT/HCPCS: 36415; 80053; 80061; 83036; 84443; 85025

== ENCOUNTER 2025-07-31 10:33 | Outpatient (CLI) | payer MEDICARE, SELFPAY ==
--- NOTE | ~2025-07-31 | MM_ITS ---
EXAMINATION: MM screening alex BI w sharan HISTORY: Screening. TECHNIQUE: Craniocaudal and mediolateral oblique 3-D tomosynthesis images were obtained and synthetic 2-D images were generated. CAD analysis was submitted and interpreted. COMPARISON: 2023, 2022, and 2020. BREAST PARENCHYMAL COMPOSITION: Not Dense: There are scattered areas of fibroglandular FINDINGS: No suspicious masses are seen. There are no suspicious calcifications. No unexplained architectural distortion is seen. There are no skin or nipple abnormalities identified. There is no adenopathy seen on the images submitted. IMPRESSION: No mammographic evidence to suggest malignancy is seen. The patient may return to screening mammography as per ACR guidelines. BI-RADS 1 - Negative. Reviewed, dictated and finalized at location C. 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
--- NOTE | ~2025-07-31 | DEXA_ITS ---
Bone Density Report Name: DIOMEDES JACKSON Age: 74 Sex: Female Ethnicity: White Date of : 1950 Indication: osteopenia; height loss; Referring Provider: HAN KNIGHT Study: Bone densitometry was performed. Exam Date: July 31, 2025 Accession number: [id number] Bone Density: Region BMD T-score Z-score Classification AP Spine(L1, L2, L3) 0.807 -1.9 0.5 Osteopenia Femoral Neck (Left) 0.575 -2.5 -0.4 Osteoporosis Total Hip (Left) 0.710 -1.9 -0.1 Osteopenia Femoral Neck (Right) 0.590 -2.3 -0.2 Osteopenia Total Hip (Right) 0.792 -1.2 0.6 Osteopenia Total Hip Mean 0.751 -1.6 0.3 Osteopenia World Health Organization criteria for BMD impression classify patients as: Normal (T-score at or above -1.0), Osteopenia (T-score between -1.0 and -2.5), or Osteoporosis (T-score at or below -2.5). 10-year Fracture Risk: FRAX not reported because: Some T-score for Spine Total or Hip Total or Femoral Neck at or below -2.5 Previous Exams: -- Region Exam Age BMD T-score BMD Change BMD Change Date g/cm2 vs Baseline vs Previous -- AP Spine (L1-L3) 07/31/2025 74 0.807 -1.9 -6.3%* -6.3%* 07/26/2021 70 0.861 -1.4 Total Hip(Left) 07/31/2025 74 0.710 -1.9 -11.4%* -11.4%* 07/26/2021 70 0.802 -1.1 Total Hip(Right) 07/31/2025 74 0.792 -1.2 2.6% 2.6% 07/26/2021 70 0.772 -1.4 -- *Denotes significance at 95% confidence level, LSC for AP Spine = 0.022 g/cm2, LSC for Total Hip = 0.027 g/cm2 Clinical Information Provided by Patient: Has used the following medications: Vitamin D, Calcium Patient maximum height was 65 Menopause Age: 51 Drinks caffeinated beverages Onset of menses at age 11 Number of children 2 Impression: The patient has osteoporosis, based on the Left Femoral Neck T-score. The BMD for the AP Spine (L1-L3) decreased, changing by -6.3% since the last DXA exam. The BMD for the Total Hip(Left) decreased, changing by -11.4% since the last DXA exam. Discussion: INCREASED RISK OF FRACTURE. BONE DENSITY IS UNDESIRABLY LOW AT ONE OR MORE SKELETAL SITES, CONSISTENT WITH POSTMENOPAUSAL OSTEOPOROSIS. This patient's lowest T-score meets the World Health Organization's (WHO) criteria for osteoporosis at one or more sites (T-score -2.5 or below). In untreated patients, the risk of osteoporotic fracture increases approximately two-fold for each 1.0 SD decrease in T-score. Low bone density is not the only risk factor for fracture; also consider factors such as patient's age, frailty or poor health, risk of falling, risk of injury, previous osteoporotic fracture, family history of osteoporosis, cigarette smoking, low body weight, etc. Not everyone with low bone mineral density has osteoporosis; osteomalacia and other metabolic bone disorders should also be considered. Patients who have osteoporosis should be evaluated for specific diseases and conditions (secondary causes) that may cause or contribute to bone loss. The [place] Association of Clinical Endocrinologists (AACE) and National Osteoporosis Foundation (NOF) recommend pharmacologic intervention for all postmenopausal women whose T-score is in this range. The patient should follow a healthful lifestyle (good nutrition with adequate calcium and vitamin D, and appropriate weight-bearing exercise). Follow-Up: Consider a repeat BMD and Vertebral Fracture Assessment (VFA) exam in 2 years or sooner if medically necessary, to reassess this patient's status. Reported by: RICARDO on 08/01/2025 8:07:00 AM. Reviewed, dictated and finalized at location A.
== END 2025-07-31 10:34 | disposition home or self-care (01) ==
PROVIDERS: PCP Family Medicine; Visit Provider Nurse Practitioner Family
DX: Z12.31 Encounter for screening mammogram for malignant neoplasm of breast (principal); M85.89 Other specified disorders of bone density and structure, multiple sites; Z78.0 Asymptomatic menopausal state
CPT/HCPCS: 77063; 77067; 77080